=== PATIENT | male | born 1965 | race Caucasian/White ===

== ENCOUNTER 2017-02-06 20:23 | Emergency (ER) | payer BC, OTHER ==
[~2017-02-06] VITALS: Ht 182.9 cm; Wt 86.2 kg
[~2017-02-06 20:23] MED LIST: ATORVASTATIN CA40 MG PO; BACTRIM DS TAB1 EACH PO; LIPITOR20 MG; NORCO 5-325 TA1 EACH PO; NORVASC2.5 MG PO
[2017-02-06] MEDS ORDERED: OMEPRAZOLE20 M1 (21:22)
[2017-02-06 23:05] VITALS: BP 112/70
== END 2017-02-06 23:18 | disposition home or self-care (01) ==
LOC: ER 20:23
DX: S61.213A Laceration without foreign body of left middle finger without damage to nail, initial encounter (principal); I10 Essential (primary) hypertension; F17.210 Nicotine dependence, cigarettes, uncomplicated; F10.99 Alcohol use, unspecified with unspecified alcohol-induced disorder; W26.8XXA Contact with other sharp object(s), not elsewhere classified, initial encounter; Y93.89 Activity, other specified; Y92.89 Other specified places as the place of occurrence of the external cause; Y99.8 Other external cause status